=== PATIENT | male | born 1980 | race Caucasian/White ===

== ENCOUNTER 2024-11-29 06:15 | Day surgery (SDC) | payer OTHER, SELFPAY | END 2024-11-29 11:14 | disposition home or self-care (01) | LOC: GI 06:15 | PROVIDERS: ATTENDING PHYSICIAN Internal Medicine Gastroenterology | DX: R19.4 Change in bowel habit (principal); K64.8 Other hemorrhoids; K22.89 Other specified disease of esophagus; K29.70 Gastritis, unspecified, without bleeding; K20.90 Esophagitis, unspecified without bleeding; R11.0 Nausea | CPT/HCPCS: 45380; 43239; 88305; 88342 ==

== ENCOUNTER 2025-04-10 11:34 | Emergency (ER) | payer OTHER, SELFPAY ==
[2025-04-10 12:03] LABS: Hematocrit 42.9 % (39.0-52.0); Hemoglobin 15.0 g/dL (13.0-18.0); Mean Corp Hgb Conc. 35.0 g/dL (33.0-37.0); Mean Corpuscular Volume 91.5 fL (80.0-94.0); Nucleated Red Blood Cells % 0 % (-); Platelet Count 219 10^3/uL (130-400); Red Cell Dist. Width 11.6 % (11.5-14.5)
[2025-04-10 12:26] LABS: ALT (SGPT) 49 U/L (0-50); AST (SGOT) 56 U/L (17-59); Albumin 4.9 g/dl (3.5-5.0); Alkaline Phosphatase 59 U/L (38-126); Blood Urea Nitrogen 10 mg/dl (9-20); Calcium 9.4 mg/dl (8.4-10.2); Carbon Dioxide 28 mmol/L (22-30); Chloride 96 mmol/L (98-107); Glucose 95 mg/dl (70-99); Lipase 71 U/L (23-300); Potassium 5.6 mmol/L (3.5-5.1); Sodium 132 mmol/L (135-145); Total Protein 7.9 g/dl (6.3-8.2); eGFR > 60.00
[2025-04-10 12:27] LABS: Troponin I < 0.012 ng/ml
--- NOTE | 2025-04-10 14:30 | ED.GENMED ---
History of Present Illness
General
Chief Complaint: Abdominal Symptoms
Source: patient
Time Seen by Provider: 04/10/25 13:57
History of Present Illness
History of Present Illness:
5-year-old male with no significant past medical history presents to the ER for evaluation of 2 days of intermittent upper abdominal pain described to be a burning sensation accompanied with multiple episodes of nonbloody nonbilious but dark emesis
and frequent nausea, noting diminished p.o. intake to both solids and liquids during this time as well. No reported fevers, chills, rigors, bowel changes or urinary symptoms. He does note drinking a few glasses of wine daily and that he may have
had more during the . Today he states he feels better than he did all day Friday or Friday. Patient did attempt some Tums, omeprazole and other lvlp-anm-gzzcuaq medications at home but without much relief. No other concerns
presently.
Past History
Past History
ED Past Medical History: None; Negative Arrthythmia
ED Past Surgical History: Orthopedic; Negative Appendectomy
Social History
Tobacco: Non-smoker
Alcohol: Occasional
Drug: None
Personal: Single
Living: with family
Review of Systems
Review of Systems
All Other Systems: ROS reviewed and negative except as documented in HPI and ROS
Phy Exam
Physical Exam
Physical Exam:
GENERAL: Alert , in no apparent distress
EYE: clear conjunctiva b/l
HEAD: NCAT
ENT: o/p clr, mmm.
CARDIAC: Regular rate and rhythm .
LUNGS: Clear breath sounds bilaterally, no acute respiratory distress, no wheezes/rales/rhonchi
ABDOMEN: Soft, without focal tenderness, no r/g, no cvat, negative Alvarado sign
NEUROLOGICAL: Alert and oriented
SKIN: Warm and dry, skin intact.
MUSCULOSKELETAL: well perfused.
PSYCH: Normal and appropriate interaction.
Scores
Heart Failure Risk
Heart Failure Risk Score: Not Applicable
Heart Score for Chest Pain Patients
STEMI patient?: Not applicable
Withdrawal Assessment of Alcohol
Withdrawal Assessment Completed?: Not applicable
Course
Orders/Labs/Results
Orders:
Orders
04/10/25 11:48
Electrocardiogram (*1) Urgent
Reason for Study: Abdominal Pain
Other Reason for Exam: epigastric pain
EKG- Treatment ONCE
04/10/25 11:57
Complete Blood Count/With Diff Urgent
Comprehensive Metabolic Panel Urgent
Lipase Urgent
Troponin I Urgent
04/10/25 14:04
0.9% Sodium Chloride 1000 ml [Nss] 1,000 ml IV BOLUS
Famotidine [Pepcid] 20 mg IV NOW STA
Mag Hydrox/Al Hydrox/Simeth [Maalox] 30 ml Phenobarb/Hyoscy/Atropine/Scop [] 10 ml Viscous Lidocaine 2% [Xylocaine Viscous Cup] 10 ml PO NOW
US Abdomen Complete/Upper Urgent
Comment:
Reason For Exam: upper abd pain, vomiting
04/10/25 14:23
Mag Hydrox/Al Hydrox/Simeth [Maalox] 30 ml .ROUTE .STK-MED ONE
Phenobarb/Hyoscy/Atropine/Scop [] 10 ml .ROUTE .STK-MED ONE
Viscous Lidocaine 2% [Xylocaine Viscous Cup] 15 ml .ROUTE .STK-MED ONE
Abnormal Lab Results
04/10/25
11:57
RBC 4.69 L 10^6/uL
(4.70-6.10)
MCH 32.0 H pg
(27.0-31.0)
Absolute Monos (auto) 0.7 H 10^3/uL
(0.1-0.6)
Monocytes % 10.4 H %
(1.7-9.3)
Sodium 132 L mmol/L
(135-145)
Potassium 5.6 H mmol/L
(3.5-5.1)
Chloride 96 L mmol/L
(98-107)
04/10/25 11:57
04/10/25 11:57
Vital Signs
Initial and Last Documented VS:
Initial Vital Signs
Temp Pulse Resp Pulse Ox
98.6 F 72 18 100
04/10/25 11:46 04/10/25 11:46 04/10/25 11:46 04/10/25 11:46
Last Documented Vital Signs
Temp Pulse Resp BP Pulse Ox
98.6 F 72 17 136/97 99
04/10/25 11:46 04/10/25 15:12 04/10/25 15:12 04/10/25 15:12 04/10/25 15:12
MDM/Problems Addressed
Differential Diagnosis Includes:
GERD
Gastritis
Pancreatitis
Gastroenteritis
Cholecystitis
Alcohol withdrawal
MDM/Problems Addressed:
45-year-old male presenting to the ER for evaluation of upper abdominal pain accompanied with nausea and vomiting and diminished p.o. intake. Symptoms improved today although patient notes he did not eat or drink much of anything. Denies any
fevers or other infectious symptoms. Abdominal exam is reassuring and without any focal tenderness. Patient was supposed to obtain an ultrasound of his abdomen back in November but never followed through with this so will obtain an ultrasound today.
He does note a family history of cholecystitis Will treat symptoms with fluids, GI cocktail and Pepcid
*Radiology
Radiology exam reviewed: radiology read reviewed
*Pulse Oximetry
SaO2: 100
Oxygen Mode of Delivery: Room air
Patient hypoxic: no
*Critical Care Note
Total Time (30-74mins, 75-104mins- exclusive of procedures): Not Applicable
Patient Management
Escalation/DeEscalation of care consider admission/obs:
Symptoms remain well controlled. US without any acute findings. Labs reassuring. While discussing results patient noted to me that about 2 months ago he had an upper endoscopy and colonoscopy completed by GI and he notes that it did show some mild
gastric inflammation. I did advise patient that he should try and cut back on alcohol use as this could be contributing to the inflammation and current symptoms. Recommended daily PPI as well. Stable for discharge and outpatient management. He
does have follow-up with ENT scheduled as well
ED Attending Note
-
Portions of this chart may have been created with voice recognition software.� Occasional wrong word or��sound alike� substitutions may have occurred due to the inherent limitations of voice recognition software.
Discharge Plan
Departure
Patient Disposition: Home (Routine Discharge)
Date of Disposition: 04/10/25
Time of Disposition: 15:39
Patient with high blood pressure during this ER visit?: Yes
Discharge Problem:
Nausea and vomiting, Upper abdominal pain
Instructions: Abdominal Pain
Prescriptions:
New
ondansetron 4 mg tablet,disintegrating
4 mg PO TIDPRN PRN (Reason: nausea/vomiting) Qty: 10 0RF
No Action
hydrocodone-acetaminophen 5 MG/500 MG tablet
1 tab PO Q6HPRN PRN (Reason: PAIN) Qty: 15 0RF
ibuprofen 600 MG tablet
600 mg PO Q6H Qty: 30 0RF
amoxicillin-pot clavulanate 875 MG/125 MG tablet
1 tab PO Q12 Qty: 20 0RF
Referrals:
Maryann Harley CRNP [Family Provider, Family Practice]
Interventions
Interventions:
*Risk Screen - Suicide Last Done: 04/10/25 11:46
*General Assessment Last Done: 04/10/25 11:46
*Neglect/Abuse Screening Last Done: 04/10/25 11:46
*ED COVID-19 Vaccine History Last Done: 04/10/25 15:11
*ED Influenza Vaccine History Last Done: 04/10/25 15:11
*Nursing Disposition Last Done: 04/10/25 15:59
[place]-Nozfda-Isltxsmylg Assessment Last Done: 04/10/25 15:11
Discharge Date and Time
Discharge Date/Time: 04/10/25 15:59
Print Language: SLOVENIAN
[2025-04-10 15:06] VITALS: BMI 22.3
[2025-04-10 15:12] VITALS: BP 136/97
[2025-04-10] MEDS: MAALOX 50 PO (15:12)
[2025-04-10] MEDS: NSS 1000 IV (15:12)
[2025-04-10] MEDS: PEPCID 20 MG IV (15:13)
== END 2025-04-10 15:59 | disposition home or self-care (01) ==
LOC: EMR 11:34
PROVIDERS: EMERGENCY PHYSICIAN Emergency Medicine; FAMILY PHYSICIAN Nurse Practitioner Family
DX: R11.2 Nausea with vomiting, unspecified (principal); R10.10 Upper abdominal pain, unspecified; Z90.49 Acquired absence of other specified parts of digestive tract
CPT/HCPCS: 99284; 96374; 96361; 76700; 80053; 83690; 84484; 85025; 93005